=== PATIENT | female | born 2000 | race Caucasian/White ===

== ENCOUNTER → 2024-01-08 13:06 | Outpatient (REF) | payer OTHER, SELFPAY | LOC: RAD 13:06 | PROVIDERS: ATTENDING PHYSICIAN Obstetrics & Gynecology Gynecology; FAMILY PHYSICIAN Nurse Practitioner Adult Health | DX: N93.9 Abnormal uterine and vaginal bleeding, unspecified (principal) | CPT/HCPCS: 76830; 76856 ==

== ENCOUNTER → 2024-08-01 18:05 | Outpatient (REF) | payer OTHER, SELFPAY | LOC: MRI 18:05 | PROVIDERS: ATTENDING PHYSICIAN Obstetrics & Gynecology Gynecology; FAMILY PHYSICIAN Hospitalist | DX: R10.2 Pelvic and perineal pain (principal) | CPT/HCPCS: 72197; A9575 ==

== ENCOUNTER → 2024-08-08 14:13 | Outpatient (REF) | payer OTHER, SELFPAY | LOC: RAD 14:13 | PROVIDERS: ATTENDING PHYSICIAN Physician Assistant; FAMILY PHYSICIAN Hospitalist | DX: R10.30 Lower abdominal pain, unspecified (principal) | CPT/HCPCS: 74177; Q9967 ==

== ENCOUNTER 2025-01-13 06:28 | Day surgery (SDC) | payer OTHER, SELFPAY | END 2025-01-13 15:33 | disposition home or self-care (01) | LOC: GI 06:28 | PROVIDERS: ATTENDING PHYSICIAN Internal Medicine Gastroenterology | DX: R10.84 Generalized abdominal pain (principal); K64.0 First degree hemorrhoids; R12 Heartburn; R14.0 Abdominal distension (gaseous) | CPT/HCPCS: 45378; 43239; 88305; 88342 ==

== ENCOUNTER → 2025-01-15 07:46 | Outpatient (REF) | payer OTHER, SELFPAY | LOC: RAD 07:46 | PROVIDERS: ATTENDING PHYSICIAN Student in an Organized Health Care Education/Training Program; FAMILY PHYSICIAN Hospitalist | DX: G89.29 Other chronic pain (principal); K52.9 Noninfective gastroenteritis and colitis, unspecified; L60.9 Nail disorder, unspecified; M25.469 Effusion, unspecified knee; M25.551 Pain in right hip; M25.552 Pain in left hip; M54.41 Lumbago with sciatica, right side; M54.42 Lumbago with sciatica, left side; R61 Generalized hyperhidrosis; R63.4 Abnormal weight loss; T14.8XXA Other injury of unspecified body region, initial encounter; Z84.0 Family history of diseases of the skin and subcutaneous tissue | CPT/HCPCS: 72110; 72200; 73523; 73560; 73565 ==

== ENCOUNTER → 2025-02-21 07:43 | Outpatient (REF) | payer OTHER, SELFPAY | LOC: RAD 07:43 | PROVIDERS: ATTENDING PHYSICIAN Internal Medicine Gastroenterology | DX: R11.0 Nausea (principal) | CPT/HCPCS: 78264; A9541 ==